=== PATIENT | male | born 1935 | race Caucasian/White ===

== ENCOUNTER 2018-07-05 10:32 | Emergency (ER) | payer OTHER ==
[~2018-07-05] VITALS: Ht 167.6 cm; Wt 81.6 kg
== END 2018-07-05 12:46 | disposition home or self-care (01) ==
LOC: ER 10:32
DX: B34.9 Viral infection, unspecified (principal)

== ENCOUNTER → 2018-11-24 | Emergency (ER) | payer OTHER ==
[~2018-11-24] VITALS: Ht 172.7 cm; Wt 86.2 kg
[~2018-11-24] MED LIST: CITALOPRAM HBR20 MG PO; CLONAZEPAM0.25 MG PO; LIPITOR20 MG PO; TRAZODONE HCL50 MG PO
== END | disposition designated cancer center or children's hospital (05) ==
LOC: ER 08:11
DX: I61.8 Other nontraumatic intracerebral hemorrhage (principal); R40.2412 Glasgow coma scale score 13-15, at arrival to emergency department; S79.812A Other specified injuries of left hip, initial encounter; S79.811A Other specified injuries of right hip, initial encounter; W18.39XA Other fall on same level, initial encounter; Y93.89 Activity, other specified; Y92.018 Other place in single-family (private) house as the place of occurrence of the external cause; Y99.8 Other external cause status